=== PATIENT | female | born 1950 | race Hispanic/Latino ===

== ENCOUNTER 2024-08-24 20:00 | Emergency (ER) | payer MEDICARE ==
[~2024-08-24] VITALS: Ht 157.5 cm; Wt 79.4 kg
[2024-08-24] MEDS ORDERED: SODIUM CHLORIDE FLUSH 10 ML SYR IV PRN (20:15)
[2024-08-24 20:26] LABS: BASOPHILS % 0.8 % (0.0-1.0); EOSINOPHILS % 0.5 % (0.0-6.0); LYMPHOCYTES % 33.6 % (18.0-39.1); MONOCYTES % 9.2 % (4.4-11.3); NEUTROPHILS % 55.7 % (38.7-80.0); RED CELL DISTRIBUTION WIDTH 13.3 % (11.7-14.4)
[2024-08-24] MEDS ORDERED: BELLADONNA ALK/PHENOBARBITAL 5 ML UDC ONE (20:38)
[2024-08-24] MEDS ORDERED: LIDOCAINE VISC 2% SOLN 15 ML UDC ONE (20:38)
[2024-08-24] MEDS ORDERED: MAGNESIUM/ALUMINUM/SIMETHICONE 30 ML UDC ONE (20:39)
[2024-08-24 20:53] LABS: EST GLOMERULAR FILTRATION RATE 79.0 ML/MIN (>=60)
[2024-08-24] MEDS: FAMOTIDINE 20 MG/2 ML VIAL IV STA (20:56)
[2024-08-24] MEDS: SODIUM CHLORIDE 0.9% 1000ML 1,000 ML IV ONE (20:56)
[2024-08-24 20:57] VITALS: RESP 16
[2024-08-24] MEDS: DONNATAL/LIDOCAINE/MAALOX 30 ML SUSP PO ONE (20:57)
[2024-08-24 21:15] LABS: LEUKOCYTE ESTERASE ,URINE NEGATIVE (NEGATIVE); PROTEIN,URINE DIPSTICK NEGATIVE (NEGATIVE)
[2024-08-24 21:16] LABS: URINE UROBILINOGEN 0.2 mg/dL (0.2 - 1)
[2024-08-24 21:19] LABS: EPITHELIAL CELLS,URINE RARE /LPF; WBC,URINE (MAN) 0-5 /HPF (0-5)
[2024-08-24] MEDS ORDERED: SUCRALFATE1 GM PO (22:04)
[2024-08-24] MEDS ORDERED: FAMOTIDINE20 MG PO (22:04)
[2024-08-24 22:15] VITALS: PULSE 54; TEMP 98.1
[2024-08-24 22:31] VITALS: BP 157/62; PULSE 54; TEMP 98.1; O2SAT 100
== END 2024-08-24 22:35 | disposition home or self-care (01) ==
LOC: ER 20:07
DX: R10.13 Epigastric pain (principal); K29.70 Gastritis, unspecified, without bleeding; I10 Essential (primary) hypertension; E11.65 Type 2 diabetes mellitus with hyperglycemia; E78.5 Hyperlipidemia, unspecified; M19.09 Primary osteoarthritis, other specified site; R94.31 Abnormal electrocardiogram [ECG] [EKG]
CPT/HCPCS: 36415; 71046; 80053; 81001; 83690; 84484; 85025; 93005; 94760; 99284; J1308; J7030